=== PATIENT | male | born 1975 | race Caucasian/White ===

== ENCOUNTER 2017-05-14 16:16 | Inpatient (IN) | payer MEDICAID ==
[~2017-05-14] VITALS: Ht 180.3 cm; Wt 108.9 kg
[2017-05-14 17:35] LABS: BASOPHIL % 0.1 % (0-2); PLATELET COUNT 228 x10^3mcL (130-400); RED CELL DISTRIBUTION WIDTH 13.4 % (11.5-14.5)
[2017-05-14 17:42] LABS: CALCIUM 8.4 mg/dL (8.5-10.1); CARBON DIOXIDE 28.6 mmol/L (21-32); CHLORIDE SERUM 102 mmol/L (98-107); CREATININE SERUM 0.9 mg/dL (0.7-1.3); GFR1 > 60 mL/min; GLUCOSE SERUM 91 mg/dL (74-106); POTASSIUM SERUM 3.7 mmol/L (3.5-5.1); SODIUM SERUM 137 mmol/L (136-145)
[2017-05-14 17:47] LABS: ALKALINE PHOSPHATASE 118 U/L (46-116); ALT/SGPT 27 U/L (16-63); AMYLASE 33 U/L (25-115); AST/SGOT 17 U/L (15-37); LIPASE 83 IU/L (73-393); TOTAL PROTEIN, SERUM 7.5 g/dL (6.4-8.2)
[2017-05-14 19:26] LABS: MAGNESIUM 1.9 mg/dL (1.8-2.4); PHOSPHOROUS 3.4 mg/dL (2.5-4.9)
[2017-05-14 19:31] LABS: CHOLESTEROL/HDL RATIO 2.7
[2017-05-14 19:34] VITALS: BP 110/74
[2017-05-14 19:56] LABS: FREE T4 1.25 ng/dL (0.76-1.46); FREE THYROXINE INDEX 2.9 ug/dL (1.4-4.5)
[2017-05-14 20:00] LABS: T3 TOTAL 1.16 ng/mL
[2017-05-14 22:15] VITALS: BP 103/63
[2017-05-14 23:22] LABS: microscopic required? NO
[2017-05-14 23:32] LABS: UA SPECIFIC GRAVITY >=1.030 (1.005-1.035); urine erythrocyte NEGATIVE (NEGATIVE)
[2017-05-14 23:50] LABS: AMPHETAMINE QUAL UR NONE DETECTED (NEG <=1000)
[2017-05-15 06:22] VITALS: BP 106/70
[2017-05-15 07:14] LABS: CALCIUM 8.1 mg/dL (8.5-10.1); CARBON DIOXIDE 29.2 mmol/L (21-32); CHLORIDE SERUM 103 mmol/L (98-107); CREATININE SERUM 0.9 mg/dL (0.7-1.3); GFR1 > 60 mL/min; GLUCOSE SERUM 128 mg/dL (74-106); POTASSIUM SERUM 4.5 mmol/L (3.5-5.1); SODIUM SERUM 138 mmol/L (136-145)
[2017-05-15 07:18] LABS: PLATELET COUNT 209 x10^3mcL (130-400); RED CELL DISTRIBUTION WIDTH 13.8 % (11.5-14.5)
[2017-05-15 07:19] LABS: BASOPHIL % 0 % (0-2)
[2017-05-15 09:50] VITALS: BP 112/80
[2017-05-15 14:02] VITALS: BP 113/67
[2017-05-15 18:08] VITALS: BP 117/67
[2017-05-15 21:21] VITALS: BP 106/64
[2017-05-16 05:32] VITALS: BP 118/74
[2017-05-16 07:21] LABS: PLATELET COUNT 189 x10^3mcL (130-400); RED CELL DISTRIBUTION WIDTH 13.6 % (11.5-14.5)
[2017-05-16 08:07] LABS: BASOPHIL % 0 % (0-2)
[2017-05-16 08:41] VITALS: BP 128/76
[2017-05-16 10:57] LABS: CARBON DIOXIDE 28.9 mmol/L (21-32); CHLORIDE SERUM 102 mmol/L (98-107); CREATININE SERUM 1.1 mg/dL (0.7-1.3); GFR1 > 60 mL/min; GLUCOSE SERUM 97 mg/dL (74-106); MAGNESIUM 2.1 mg/dL (1.8-2.4); PHOSPHOROUS 2.5 mg/dL (2.5-4.9); SODIUM SERUM 136 mmol/L (136-145)
[2017-05-16 12:45] VITALS: BP 106/63
[2017-05-16 15:46] VITALS: BP 115/75
[2017-05-16 21:56] VITALS: BP 106/56
[2017-05-17 05:57] VITALS: BP 111/66
[2017-05-17 06:46] LABS: CALCIUM 8.1 mg/dL (8.5-10.1); CARBON DIOXIDE 28.7 mmol/L (21-32); CHLORIDE SERUM 102 mmol/L (98-107); GFR1 > 60 mL/min; GLUCOSE SERUM 97 mg/dL (74-106); MAGNESIUM 2.1 mg/dL (1.8-2.4); POTASSIUM SERUM 3.9 mmol/L (3.5-5.1); SODIUM SERUM 138 mmol/L (136-145)
[2017-05-17 06:47] LABS: BASOPHIL % 0.1 % (0-2); PLATELET COUNT 176 x10^3mcL (130-400); RED CELL DISTRIBUTION WIDTH 13.5 % (11.5-14.5)
[2017-05-17 06:49] LABS: ALBUMIN 2.7 g/dL (3.4-5.0)
[2017-05-17 09:42] VITALS: BP 120/73
[2017-05-17 14:48] VITALS: BP 114/63
[2017-05-17 21:35] VITALS: BP 103/53
[2017-05-18 06:08] VITALS: BP 115/66
[2017-05-18 06:41] LABS: CALCIUM 8.2 mg/dL (8.5-10.1); CARBON DIOXIDE 29.5 mmol/L (21-32); CHLORIDE SERUM 104 mmol/L (98-107); GFR1 > 60 mL/min; GLUCOSE SERUM 92 mg/dL (74-106); POTASSIUM SERUM 3.3 mmol/L (3.5-5.1); SODIUM SERUM 139 mmol/L (136-145)
[2017-05-18 06:50] LABS: BASOPHIL % 0.3 % (0-2); PLATELET COUNT 206 x10^3mcL (130-400); RED CELL DISTRIBUTION WIDTH 13.4 % (11.5-14.5)
[2017-05-18 08:42] VITALS: BP 113/78
[2017-05-18] MEDS ORDERED: CIPRO500 MG PO (09:27)
[2017-05-18] MEDS ORDERED: TRAMADOL HCL50 MG PO (09:28)
[2017-05-18] MEDS ORDERED: COL100 PO (09:31)
[2017-05-18] MEDS ORDERED: BD LACTINEX1.4 MG PO (11:07)
[2017-05-18 11:14] VITALS: BP 113/78
== END 2017-05-18 11:36 | disposition home or self-care (01) | DRG 225 ==
LOC: ED 16:16 → DU 18:20
PROVIDERS: Emergency Medicine; Family Medicine; Surgery; ADMIT Family Medicine Sports Medicine
PROC: 0DTJ4ZZ Resection of Appendix, Percutaneous Endoscopic Approach (ICD-10-PCS; principal; 2017-05-14 21:00)
DX: K35.80 Unspecified acute appendicitis (principal); E43 Unspecified severe protein-calorie malnutrition; E86.0 Dehydration; F12.10 Cannabis abuse, uncomplicated; E78.5 Hyperlipidemia, unspecified; J98.11 Atelectasis; E87.6 Hypokalemia; E66.9 Obesity, unspecified; Z68.33 Body mass index [BMI] 33.0-33.9, adult
CPT/HCPCS: 83880; 84439; C1751; J0290; J0330; J0690; J0694; J1644; J1885; J1956; J2175; J2250; J2270; J2543; J2704; J2710; J3010; J3490; J7030; J7120; Q0092